=== PATIENT | male | born 1930 | race Caucasian/White ===

== ENCOUNTER 2018-10-29 09:04 | Emergency (ER) | payer MEDICARE, BC ==
[2018-10-29] MEDS ORDERED: NITROGLYCERIN OINT 1 INCH/GM PACKET TOPICAL STA (09:12)
[2018-10-29 09:16] VITALS: RESP 18; TEMP 98.4
--- NOTE | 2018-10-29 09:19 | ED ---
Chest Pain HPI - General Stated Complaint: Chest Pain, Weakness Time Seen by Provider: 10/29/18 09:04 Source: patient, RN notes reviewed - History of Present Illness Initial Comments: This 88-year-old male with no prior history of heart disease who states she's been having intermittent episodes of midsternal chest pain for about the last week his morning it came on in was more severe than usual last longer than usual. He states it was 7 and 8/10 severity retrosternal pressure-type discomfort. Nonradiating. No associated fevers chills nausea vomiting sweats. He was given 324 past or by paramedics states the pain is now down to about 1/10. No cough no trauma no fevers chills or sweats he denies any recent travel he does report that he is got back from [place] states he did not go his family did. MD Complaint: chest pain - Related Data Home Medications Medication Instructions Recorded Confirmed Atorvastatin [Lipitor] 10 mg PO DAILY 10/29/18 10/29/18 Cetirizine HCl [Zyrtec] 10 mg PO DAILY 10/29/18 10/29/18 HYDROcodone/APAP 7.5-325MG [[place] 1 tab PO BID 10/29/18 10/29/18 7.5-325] Lisinopril 20 mg PO DAILY 10/29/18 10/29/18 Allergies Allergy/AdvReac Type Severity Reaction Status Date / Time cephalexin [From Keflex] AdvReac Nausea & Verified 10/29/18 09:37 Vomiting Review of Systems ROS Statement: Those systems with pertinent positive or pertinent negative responses have been documented in the HPI. ROS Other: All systems not noted in ROS Statement are negative. EKG Findings - EKG Results: EKG: interpreted by ERMD, sinus rhythm (EKG shows sinus bradycardia first-degree AV block rate was 57. Interval to 10 QRS duration 94 QT since QTC 434/422) General Exam - General Exam Comments Initial Comments: This is a well-developed well-nourished awake alert oriented 3 male General appearance: alert, in no apparent distress Head exam: Present: atraumatic, normocephalic, normal inspection Eye exam: Present: normal appearance, PERRL, EOMI. Absent: scleral icterus, conjunctival injection, periorbital swelling ENT exam: Present: normal exam, mucous membranes moist Neck exam: Present: normal inspection, other (No stridor JVD or bruits). Absent: tenderness, meningismus, lymphadenopathy Respiratory exam: Present: normal lung sounds bilaterally. Absent: respiratory distress, wheezes, rales, rhonchi, stridor Cardiovascular Exam: Present: regular rate, normal rhythm, normal heart sounds. Absent: systolic murmur, diastolic murmur, rubs, gallop, clicks GI/Abdominal exam: Present: soft, normal bowel sounds. Absent: distended, tenderness, guarding, rebound, rigid Extremities exam: Present: normal inspection, full ROM, normal capillary refill. Absent: tenderness, pedal edema, joint swelling, calf tenderness Back exam: Present: normal inspection Neurological exam: Present: alert, oriented X3, CN II-XII intact Psychiatric exam: Present: normal affect, normal mood Skin exam: Present: warm, dry, intact, normal color, other (Multiple skin lesions consistent with keratoses). Absent: rash Course Vital Signs 10/29/18 10/29/18 09:10 12:15 Temperature 98.4 F Pulse Rate 61 75 Respiratory 18 18 Rate Blood Pressure 131/68 139/74 O2 Sat by Pulse 94 L 97 Oximetry Chest Pain MDM - MDM Imaging was reviewed no evidence on x-ray of acute findings CAT scan was done due to the elevated d-dimer there is evidence of a a setting aortic aneurysm no evidence of pulmonary emboli. The patient's demonstrate elevation of his pancreatic enzymes as well as liver enzymes of unknown etiology. The setting and presentation of chest pain or suspicious for ACS. I did a long discussion with patient family members were present. This was done on several different occasions patient is refusing admission at this time. I did explain in detail the risk of going home and benefits of further evaluation he understands and is refusing. Patient daughter is present and is unable to convince him to stay. Does agree to follow with Dr. Bass in 2 days. He is similar to back at any time. Critical Care Time Critical Care Time: Yes Critical Care Time: 31 minutes of critical care time which includes his presentation with history physical labs x-rays discussed with paramedics reevaluation the patient. Discussed with patient family and several occasions regarding the findings review of any charting that was available and documentation of the above Disposition Clinical Impression: Acute coronary syndrome, Unstable angina pectoris, Acute pancreatitis, Hepatitis Disposition: Left Against Medical Advice Condition: Serious Is patient prescribed a controlled substance at d/c from ED?: No Referrals: Burton Bass MD [Primary Care Provider] - 1-2 days
[2018-10-29 09:57] LABS: Basophils % (A) 0 %; Eosinophils # (A) 0.1 k/uL (0-0.7); Eosinophils % (A) 1 %; HCT 42.8 % (39.0-53.0); Lymphocytes # (A) 1.5 k/uL (1.0-4.8); Lymphocytes % (A) 9 %; MCH 33.6 pg (25.0-35.0); MCHC 32.8 g/dL (31.0-37.0); MCV 102.4 fL (80.0-100.0); Mean Platelet Volume 6.4; Monocytes # (A) 0.6 k/uL (0-1.0); Monocytes % (A) 4 %; Neutrophils # (A) 13.1 k/uL (1.3-7.7); Neutrophils % (A) 85 %; Platelet Count 329 k/uL (150-450); RBC 4.18 m/uL (4.30-5.90); RDW 12.3 % (11.5-15.5); WBC 15.3 k/uL (3.8-10.6)
--- NOTE | 2018-10-29 10:07 | XR ---
EXAMINATION TYPE: XR chest 2V DATE OF EXAM: 10/29/2018 COMPARISON: NONE HISTORY: Chest pain TECHNIQUE: Frontal and lateral views of the chest are obtained. FINDINGS: There is minimal left basilar subsegmental atelectasis. Pulmonary hyperinflation relates u nderlying emphysematous change. Cardia mediastinal is mildly enlarged. Osseous structures display dif fuse demineralization. IMPRESSION: Minimal left basilar subsegmental atelectasis and underlying emphysematous change.
[2018-10-29 10:21] LABS: ALT 227 U/L (21-72); AST 478 U/L (17-59); Albumin 3.8 g/dL (3.5-5.0); Alkaline Phosphatase 140 U/L (38-126); Amylase 101 U/L (30-110); Anion Gap 8 mmol/L; Blood Urea Nitrogen 20 mg/dL (9-20); Calcium 10.6 mg/dL (8.4-10.2); Carbon Dioxide 24 mmol/L (22-30); Chloride 108 mmol/L (98-107); Glucose 105 mg/dL (74-99); Lipase 1022 U/L (23-300); Potassium 4.7 mmol/L (3.5-5.1); Sodium 140 mmol/L (137-145); Total Bilirubin 0.9 mg/dL (0.2-1.3); Total Protein 6.4 g/dL (6.3-8.2)
[2018-10-29 10:26] LABS: Partial Thromboplastin Time 22.3 sec (22.0-30.0); Prothrombin Time 10.3 sec (9.0-12.0)
[2018-10-29 11:05] LABS: D-Dimer 0.73 mg/L FEU (<0.60)
[2018-10-29] MEDS ORDERED: fentaNYL (PF) 50 MCG/ML 2 ML AMP IV STA (11:36)
[2018-10-29 12:18] VITALS: BP 139/74; PULSE 75
--- NOTE | 2018-10-29 12:26 | CT ---
EXAMINATION TYPE: CT angio chest DATE OF EXAM: 10/29/2018 COMPARISON: NONE HISTORY: Chest pain CT DLP: 339.4 mGycm. Automated Exposure Control for Dose Reduction was Utilized. CONTRAST: CTA scan of the thorax is performed with IV Contrast, patient injected with 100 mL of Isovue 370, pul monary embolism protocol. MIP Images are created on CT scanner and reviewed. FINDINGS: LUNGS: Is a macroscopic fat-containing medial right upper lobe 1.4 cm nodule with dystrophic appearin g calcifications. 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 Right hemidiaphragm elevation is noted. Bibasilar opacities are seen. Within the right basilar opacity there are few are as of hypoattenuation that could represent pneumonia MEDIASTINUM: There is satisfactory enhancement of the pulmonary artery and its branches, there is no CT evidence for pulmonary embolism. There is enlargement of the right and left main pulmonary arteri es with the right measuring up to 3.3 cm suggesting underlying pulmonary arterial hypertension. Moder ate coronary artery calcifications are seen. Mild cardiomegaly is present There are no greater than 1 cm hilar or mediastinal lymph nodes. No cardiomegaly or pericardial effusion is seen. Ascending th oracic aorta is mildly enlarged measuring 4.2 cm. OTHER: Approximately 2.2 cm hepatic cyst is partially visualized as well as additional 2.0 cm left he patic lobe cyst. Right hemidiaphragm elevation is seen. Evaluation of the liver is suboptimal. Mild b ilateral symmetric retroareolar gynecomastia is noted. Diffuse osseous demineralization and mild mult ilevel degenerative changes of the spine are noted. IMPRESSION: 1. No evidence of pulmonary embolus. Bibasilar airspace disease is felt to represent components of sergo th atelectasis and pneumonia. 2. Ascending thoracic aortic aneurysm measuring up to 4.2 cm. 3. Enlargement main pulmonary arteries history of underlying pulmonary arterial hypertension. 4. Right upper lung pulmonary nodule appears benign relating to a hamartoma given macroscopic fat how ever confirmatory examination in 6 months to ensure stability.
--- NOTE | 2018-10-29 13:59 | ED ---
Medical Decision Making - Lab Data Result diagrams: 10/29/18 09:28 10/29/18 09:28 Lab Results 10/29/18 10/29/18 10/29/18 Range/Units 09:28 09:28 09:28 WBC 15.3 H (3.8-10.6) k/uL RBC 4.18 L (4.30-5.90) m/uL Hgb 14.0 (13.0-17.5) gm/dL Hct 42.8 (39.0-53.0) % MCV 102.4 H (80.0-100.0) fL MCH 33.6 (25.0-35.0) pg MCHC 32.8 (31.0-37.0) g/dL RDW 12.3 (11.5-15.5) % Plt Count 329 (150-450) k/uL Neutrophils % 85 % Lymphocytes % 9 % Monocytes % 4 % Eosinophils % 1 % Basophils % 0 % Neutrophils # 13.1 H (1.3-7.7) k/uL Lymphocytes # 1.5 (1.0-4.8) k/uL Monocytes # 0.6 (0-1.0) k/uL Eosinophils # 0.1 (0-0.7) k/uL Basophils # 0.0 (0-0.2) k/uL PT 10.3 (9.0-12.0) sec INR 1.0 (<1.2) APTT 22.3 (22.0-30.0) sec D-Dimer 0.73 H (<0.60) mg/L FEU Sodium 140 (137-145) mmol/L Potassium 4.7 (3.5-5.1) mmol/L Chloride 108 H (98-107) mmol/L Carbon Dioxide 24 (22-30) mmol/L Anion Gap 8 mmol/L BUN 20 (9-20) mg/dL Creatinine 0.70 (0.66-1.25) mg/dL Est GFR (CKD-EPI)AfAm >90 (>60 ml/min/1.73 sqM) Est GFR (CKD-EPI)NonAf 85 (>60 ml/min/1.73 sqM) Glucose 105 H (74-99) mg/dL Calcium 10.6 H (8.4-10.2) mg/dL Magnesium 2.0 (1.6-2.3) mg/dL Total Bilirubin 0.9 (0.2-1.3) mg/dL AST 478 H (17-59) U/L ALT 227 H (21-72) U/L Alkaline Phosphatase 140 H (38-126) U/L Troponin I (0.000-0.034) ng/mL NT-Pro-B Natriuret Pep pg/mL Total Protein 6.4 (6.3-8.2) g/dL Albumin 3.8 (3.5-5.0) g/dL Amylase 101 (30-110) U/L Lipase 1022 H (23-300) U/L 10/29/18 10/29/18 Range/Units 09:28 09:28 WBC (3.8-10.6) k/uL RBC (4.30-5.90) m/uL Hgb (13.0-17.5) gm/dL Hct (39.0-53.0) % MCV (80.0-100.0) fL MCH (25.0-35.0) pg MCHC (31.0-37.0) g/dL RDW (11.5-15.5) % Plt Count (150-450) k/uL Neutrophils % % Lymphocytes % % Monocytes % % Eosinophils % % Basophils % % Neutrophils # (1.3-7.7) k/uL Lymphocytes # (1.0-4.8) k/uL Monocytes # (0-1.0) k/uL Eosinophils # (0-0.7) k/uL Basophils # (0-0.2) k/uL PT (9.0-12.0) sec INR (<1.2) APTT (22.0-30.0) sec D-Dimer (<0.60) mg/L FEU Sodium (137-145) mmol/L Potassium (3.5-5.1) mmol/L Chloride (98-107) mmol/L Carbon Dioxide (22-30) mmol/L Anion Gap mmol/L BUN (9-20) mg/dL Creatinine (0.66-1.25) mg/dL Est GFR (CKD-EPI)AfAm (>60 ml/min/1.73 sqM) Est GFR (CKD-EPI)NonAf (>60 ml/min/1.73 sqM) Glucose (74-99) mg/dL Calcium (8.4-10.2) mg/dL Magnesium (1.6-2.3) mg/dL Total Bilirubin (0.2-1.3) mg/dL AST (17-59) U/L ALT (21-72) U/L Alkaline Phosphatase (38-126) U/L Troponin I <0.012 (0.000-0.034) ng/mL NT-Pro-B Natriuret Pep 109 pg/mL Total Protein (6.3-8.2) g/dL Albumin (3.5-5.0) g/dL Amylase (30-110) U/L Lipase (23-300) U/L Disposition Clinical Impression: Acute coronary syndrome, Unstable angina pectoris, Acute pancreatitis, Hepatitis Disposition: Left Against Medical Advice Condition: Serious Instructions (If sedation given, give patient instructions): Chest Pain (ED), Acute Coronary Syndrome (ED), Pancreatitis (ED) Is patient prescribed a controlled substance at d/c from ED?: No Referrals: Burton Bass MD [Primary Care Provider] - 1-2 days
== END 2018-10-29 13:52 | disposition left against medical advice (07) ==
LOC: EC 09:04
DX: I24.9 Acute ischemic heart disease, unspecified (principal); K85.90 Acute pancreatitis without necrosis or infection, unspecified; K75.9 Inflammatory liver disease, unspecified; I71.2 Thoracic aortic aneurysm, without rupture; Z79.899 Other long term (current) drug therapy; Z88.1 Allergy status to other antibiotic agents
CPT/HCPCS: 36415; 93005; 85379; 83880; 80053; 82150; 83690; 83735; 84484; 85025; 85610; 85730; 71046; 71275; 99291; Q9967

== ENCOUNTER 2018-12-14 12:02 | Emergency (ER) | payer MEDICARE, BC ==
[2018-12-14 12:14] VITALS: TEMP 98
--- NOTE | 2018-12-14 12:26 | ED ---
General Adult HPI - General Chief complaint: Fall Stated complaint: Syncope Time Seen by Provider: 12/14/18 12:05 Source: patient, RN notes reviewed Mode of arrival: EMS Limitations: no limitations - History of Present Illness Initial comments: This is an 88-year-old male who presents emergency Department complaining that he thought he locked his walker today but he did not and it removed on him and he fell onto his butt. Patient states he did not hit his head did not hit his neck. Patient denies any injury. Patient states he was told to come in to be checked out by the people he was with time. Patient states nothing bothersome at this time. Patient denies a headache patient denies any neck pain patient denies any numbness weakness. Patient denies any chest pain shortness of breath or difficulty breathing. Patient denies any back pain. Patient denies any tailbone pain. Patient denies any extremity pain. Patient states he can move a ll 4 extremities and full range of motion. - Related Data Home Medications Medication Instructions Recorded Confirmed Atorvastatin [Lipitor] 10 mg PO DAILY 10/29/18 12/14/18 Cetirizine HCl [Zyrtec] 10 mg PO DAILY 10/29/18 12/14/18 HYDROcodone/APAP 7.5-325MG [[place] 1 tab PO BID 10/29/18 12/14/18 7.5-325] Lisinopril 20 mg PO DAILY 10/29/18 12/14/18 ALPRAZolam [Xanax] 0.25 mg PO DAILY PRN 12/14/18 12/14/18 Isosorbide Mononitrate ER [Imdur] 60 mg PO DAILY 12/14/18 12/14/18 Lansoprazole [Prevacid] 30 mg PO DAILY 12/14/18 12/14/18 Tamsulosin HCl [Flomax] 0.4 mg PO DAILY 12/14/18 12/14/18 Verapamil HCl [Verapamil ER] 240 mg PO DAILY 12/14/18 12/14/18 Zolpidem Tartrate [Ambien] 10 mg PO HS PRN 12/14/18 12/14/18 Allergies Allergy/AdvReac Type Severity Reaction Status Date / Time cephalexin [From Keflex] AdvReac Nausea & Verified 12/14/18 12:26 Vomiting Review of Systems ROS Statement: Those systems with pertinent positive or pertinent negative responses have been documented in the HPI. ROS Other: All systems not noted in ROS Statement are negative. Past Medical History Past Medical History: Hyperlipidemia, Hypertension History of Any Multi-Drug Resistant Organisms: None Reported Past Surgical History: Back Surgery Past Psychological History: No Psychological Hx Reported Smoking Status: Never smoker Past Alcohol Use History: None Reported Past Drug Use History: None Reported General Exam - General Exam Comments Initial Comments: GENERAL: Patient is well-developed and well-nourished. Patient is nontoxic and well- hydrated and is in no acute distress. ENT: Neck is soft and supple. No significant lymphadenopathy is noted. Oropharynx is clear. Moist mucous membranes. Neck has full range of motion without eliciting any pain. EYES: The sclera were anicteric and conjunctiva were pink and moist. Extraocular movements were intact and pupils were equal round and reactive to light. Eyelids were unremarkable. PULMONARY: Unlabored respirations. Good breath sounds bilaterally. No audible rales rhonchi or wheezing was noted. CARDIOVASCULAR: There is a regular rate and rhythm without any murmurs gallops or rubs. ABDOMEN: Soft and nontender with normal bowel sounds. SKIN: Skin is clear with no lesions or rashes and otherwise unremarkable. NEUROLOGIC: Patient is alert and oriented x3. Cranial nerves II through XII are grossly intact. Motor and sensory are also intact. Normal speech, volume and content. Symmetrical smile. MUSCULOSKELETAL: Normal extremities with adequate strength and full range of motion. No lower extremity swelling or edema. No calf tenderness. I palpated the patient's back and he had no area of tenderness. LYMPHATICS: No significant lymphadenopathy is noted PSYCHIATRIC: Normal psychiatric evaluation. 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 Patient will be worked up for a syncopal episode and bradycardia EKG shows normal sinus rhythm at 74 bpm [place] interval 176 QRS is 94 QT interval 382 QTC is 424. Patient's EKG shows no ST segment elevation or depression or T wave abnormalities are noted. We finally talked to the actual nurse who witnessed the whole event and she indicated that the patient lost consciousness but was very near passing out and did not respond to her questions initially it took a while for him to start responding to her questions. She also indicated that his heart rate was in the 30s. When I spoke to the daughter about this she stated that there is nothing really to do about that because the patient himself would not want any intervention. At this point time we discussed staying versus going back to facility and the daughter was comfortable letting him go back to the facility and following up on his own. - Lab Data Result diagrams: 12/14/18 13:29 12/14/18 13:29 Lab Results 12/14/18 12/14/18 12/14/18 Range/Units 13:29 13:29 13:29 WBC 10.2 (3.8-10.6) k/uL RBC 4.20 L (4.30-5.90) m/uL Hgb 13.7 (13.0-17.5) gm/dL Hct 41.7 (39.0-53.0) % MCV 99.3 (80.0-100.0) fL MCH 32.6 (25.0-35.0) pg MCHC 32.8 (31.0-37.0) g/dL RDW 12.1 (11.5-15.5) % Plt Count 227 (150-450) k/uL Neutrophils % 83 % Lymphocytes % 11 % Monocytes % 4 % Eosinophils % 1 % Basophils % 0 % Neutrophils # 8.4 H (1.3-7.7) k/uL Lymphocytes # 1.1 (1.0-4.8) k/uL Monocytes # 0.4 (0-1.0) k/uL Eosinophils # 0.1 (0-0.7) k/uL Basophils # 0.0 (0-0.2) k/uL PT 10.0 (9.0-12.0) sec INR 0.9 (<1.2) APTT 23.0 (22.0-30.0) sec Sodium 141 (137-145) mmol/L Potassium 4.6 (3.5-5.1) mmol/L Chloride 106 (98-107) mmol/L Carbon Dioxide 27 (22-30) mmol/L Anion Gap 8 mmol/L BUN 16 (9-20) mg/dL Creatinine 0.79 (0.66-1.25) mg/dL Est GFR (CKD-EPI)AfAm >90 (>60 ml/min/1.73 sqM) Est GFR (CKD-EPI)NonAf 81 (>60 ml/min/1.73 sqM) Glucose 110 H (74-99) mg/dL Calcium 10.8 H (8.4-10.2) mg/dL Magnesium 1.9 (1.6-2.3) mg/dL Total Bilirubin 0.5 (0.2-1.3) mg/dL AST 20 (17-59) U/L ALT 26 (21-72) U/L Alkaline Phosphatase 102 (38-126) U/L Troponin I (0.000-0.034) ng/mL Total Protein 6.5 (6.3-8.2) g/dL Albumin 4.0 (3.5-5.0) g/dL 12/14/18 Range/Units 13:29 WBC (3.8-10.6) k/uL RBC (4.30-5.90) m/uL Hgb (13.0-17.5) gm/dL Hct (39.0-53.0) % MCV (80.0-100.0) fL MCH (25.0-35.0) pg MCHC (31.0-37.0) g/dL RDW (11.5-15.5) % Plt Count (150-450) k/uL Neutrophils % % Lymphocytes % % Monocytes % % Eosinophils % % Basophils % % Neutrophils # (1.3-7.7) k/uL Lymphocytes # (1.0-4.8) k/uL Monocytes # (0-1.0) k/uL Eosinophils # (0-0.7) k/uL Basophils # (0-0.2) k/uL PT (9.0-12.0) sec INR (<1.2) APTT (22.0-30.0) sec Sodium (137-145) mmol/L Potassium (3.5-5.1) mmol/L Chloride (98-107) mmol/L Carbon Dioxide (22-30) mmol/L Anion Gap mmol/L BUN (9-20) mg/dL Creatinine (0.66-1.25) mg/dL Est GFR (CKD-EPI)AfAm (>60 ml/min/1.73 sqM) Est GFR (CKD-EPI)NonAf (>60 ml/min/1.73 sqM) Glucose (74-99) mg/dL Calcium (8.4-10.2) mg/dL Magnesium (1.6-2.3) mg/dL Total Bilirubin (0.2-1.3) mg/dL AST (17-59) U/L ALT (21-72) U/L Alkaline Phosphatase (38-126) U/L Troponin I <0.012 (0.000-0.034) ng/mL Total Protein (6.3-8.2) g/dL Albumin (3.5-5.0) g/dL Disposition Clinical Impression: Pre-syncope Disposition: HOME SELF-CARE Condition: Good Instructions (If sedation given, give patient instructions): Near Syncope (ED) Is patient prescribed a controlled substance at d/c from ED?: No Referrals: Burton Bass MD [Primary Care Provider] - 1-2 days Time of Disposition: 12:26
[2018-12-14] MEDS ORDERED: SODIUM CHLORIDE 0.9% 500 ML 500 ML IV STA (13:00)
--- NOTE | 2018-12-14 13:52 | XR ---
EXAMINATION TYPE: XR chest 2V DATE OF EXAM: 12/14/2018 COMPARISON: 11/08/2018 HISTORY: Chest pain, syncope and hypertension TECHNIQUE: Frontal and lateral views of the chest are obtained. FINDINGS: There is a new retrocardiac opacity on the lateral view. The remainder the lungs are clear . There is right hemidiaphragm elevation as seen on the prior. Cardiomediastinal silhouette is within normal limits. No sizable pneumothorax or pleural effusion. No acute osseous pathology. IMPRESSION: New retrocardiac opacity may represent atelectasis or pneumonia in the appropriate clini zeenat setting.
[2018-12-14 13:54] LABS: ALT 26 U/L (21-72); AST 20 U/L (17-59); Alkaline Phosphatase 102 U/L (38-126); Anion Gap 8 mmol/L; Blood Urea Nitrogen 16 mg/dL (9-20); Calcium 10.8 mg/dL (8.4-10.2); Carbon Dioxide 27 mmol/L (22-30); Chloride 106 mmol/L (98-107); Glucose 110 mg/dL (74-99); Magnesium 1.9 mg/dL (1.6-2.3); Potassium 4.6 mmol/L (3.5-5.1); Sodium 141 mmol/L (137-145); Total Bilirubin 0.5 mg/dL (0.2-1.3); Total Protein 6.5 g/dL (6.3-8.2)
[2018-12-14 13:57] LABS: Basophils % (A) 0 %; Eosinophils # (A) 0.1 k/uL (0-0.7); Eosinophils % (A) 1 %; HCT 41.7 % (39.0-53.0); HGB 13.7 gm/dL (13.0-17.5); Lymphocytes # (A) 1.1 k/uL (1.0-4.8); Lymphocytes % (A) 11 %; MCH 32.6 pg (25.0-35.0); MCHC 32.8 g/dL (31.0-37.0); MCV 99.3 fL (80.0-100.0); Mean Platelet Volume 6.7; Monocytes # (A) 0.4 k/uL (0-1.0); Monocytes % (A) 4 %; Neutrophils # (A) 8.4 k/uL (1.3-7.7); Neutrophils % (A) 83 %; Platelet Count 227 k/uL (150-450); RDW 12.1 % (11.5-15.5); WBC 10.2 k/uL (3.8-10.6)
[2018-12-14 14:02] LABS: INR 0.9 (<1.2)
[2018-12-14 16:16] VITALS: BP 128/74; PULSE 80; RESP 19
== END 2018-12-14 16:18 | disposition home or self-care (01) ==
LOC: EC 12:02
DX: R55 Syncope and collapse (principal); E78.5 Hyperlipidemia, unspecified; I10 Essential (primary) hypertension; Z88.1 Allergy status to other antibiotic agents; Z79.891 Long term (current) use of opiate analgesic; Z79.899 Other long term (current) drug therapy; W19.XXXA Unspecified fall, initial encounter; Y93.89 Activity, other specified; Y92.009 Unspecified place in unspecified non-institutional (private) residence as the place of occurrence of the external cause
CPT/HCPCS: 36415; 71046; 80053; 83735; 84484; 85025; 85610; 85730; 93005; 99284

== ENCOUNTER 2019-07-02 11:10 | Emergency (ER) | payer MEDICARE, BC ==
[2019-07-02] MEDS ORDERED: SODIUM CHLORIDE 0.9% 500 ML 500 ML IV STA (11:22)
[2019-07-02 11:24] VITALS: TEMP 98.3
--- NOTE | 2019-07-02 12:03 | ED ---
General Adult HPI - General Chief complaint: Syncope Stated complaint: Unresponsive Time Seen by Provider: 07/02/19 11:15 Source: patient Mode of arrival: EMS Limitations: no limitations - History of Present Illness Initial comments: The patient is an 88-year-old male with past history of hyperlipidemia and hypertension who presents to the emergency department with reported syncopal episode. Patient was at [employer] when he had a syncopal episode that lasted 15 minutes. His children were at his side. Daughter stated that he had a look of "shear pain" on his face and then ended up slumping over. He was unresponsive for approximately 15 minutes. They state that they would scream his name and he would open his eyes and close them again. There was an AED in the [employer]. They placed on the patient and no shock was advised. A nurse was in [employer]. She had difficulty palpating a pulse. They laid the patient down and he became somewhat more responsive. EMS was called. They did have low blood pressure in the 80s systolic. The patient also had low oxygen saturations in the high 80s. They placed him on 2 L oxygen, obtained IV access and gave the patient a few cc of fluid. He presents to the emergency department alert and answering questions. He denies any recent illnesses. Denies feeling ill going to [employer]. Has had a good appetite. No chest pain or shortness of breath. Admits to a mild cough. No abdominal pain. Denies melanotic stools or hematochezia. There are no other alleviating, precipitating or modifying factors - Related Data Home Medications Medication Instructions Recorded Confirmed Atorvastatin [Lipitor] 10 mg PO DAILY@1700 10/29/18 07/02/19 Cetirizine HCl [Zyrtec] 10 mg PO DAILY@0810/29/18 07/02/19 Lisinopril 20 mg PO DAILY@0810/29/18 07/02/19 ALPRAZolam [Xanax] 0.25 mg PO BID@08,199912/14/18 07/02/19 Isosorbide Mononitrate ER [Imdur] 60 mg PO DAILY@0812/14/18 07/02/19 Lansoprazole [Prevacid] 30 mg PO BID@0800,17012/14/18 07/02/19 Tamsulosin HCl [Flomax] 0.4 mg PO DAILY@1700 12/14/18 07/02/19 C,E,Zinc,Copper 11/Bfmnv3b/Lut 1 tab PO DAILY@0800 07/02/19 07/02/19 [Ocuvite Adult 50 Plus Softgel] Furosemide [Lasix] 40 mg PO DAILY 07/02/19 07/02/19 Sucralfate [Carafate] 1 gm PO ACHS 07/02/19 07/02/19 Allergies Allergy/AdvReac Type Severity Reaction Status Date / Time cephalexin [From Keflex] AdvReac Nausea & Verified 07/02/19 11:52 Vomiting Review of Systems ROS Statement: Those systems with pertinent positive or pertinent negative responses have been documented in the HPI. ROS Other: All systems not noted in ROS Statement are negative. Past Medical History Past Medical History: Hyperlipidemia, Hypertension Additional Past Medical History / Comment(s): gall bladder issues History of Any Multi-Drug Resistant Organisms: None Reported Past Surgical History: Back Surgery Past Psychological History: No Psychological Hx Reported Smoking Status: Never smoker Past Alcohol Use History: None Reported Past Drug Use History: None Reported General Exam Limitations: no limitations General appearance: alert, in no apparent distress Head exam: Present: atraumatic, normocephalic, normal inspection Eye exam: Present: normal appearance, PERRL, EOMI. Absent: scleral icterus, conjunctival injection, periorbital swelling ENT exam: Present: normal exam, mucous membranes moist Neck exam: Present: normal inspection. Absent: tenderness, meningismus, lymphadenopathy Respiratory exam: Present: wheezes, rales, decreased breath sounds. Absent: respiratory distress, rhonchi, stridor, accessory muscle use Cardiovascular Exam: Present: regular rate, normal rhythm, normal heart sounds. Absent: systolic murmur, diastolic murmur, rubs, gallop, clicks GI/Abdominal exam: Present: soft, normal bowel sounds. Absent: distended, tenderness, guarding, rebound, rigid Extremities exam: Present: normal inspection, full ROM, normal capillary refill. Absent: tenderness, pedal edema, joint swelling, calf tenderness Back exam: Present: normal inspection Neurological exam: Present: alert, oriented X3, CN II-XII intact Psychiatric exam: Present: normal affect, normal mood Skin exam: Present: warm, dry, intact, normal color. Absent: rash Course Vital Signs 07/02/19 07/02/19 07/02/19 11:13 11:21 11:30 Temperature 98.3 F Pulse Rate 81 78 Respiratory 20 16 16 Rate Blood Pressure 108/60 108/60 108/60 O2 Sat by Pulse 98 90 L Oximetry 07/02/19 07/02/19 07/02/19 12:00 12:30 13:00 Temperature Pulse Rate 84 78 78 Respiratory 13 15 18 Rate Blood Pressure 112/60 104/70 113/69 O2 Sat by Pulse 94 L 97 97 Oximetry 07/02/19 07/02/19 13:30 13:46 Temperature Pulse Rate 79 82 Respiratory 18 Rate Blood Pressure 114/66 O2 Sat by Pulse 97 Oximetry EKG Findings - EKG Comments: EKG Findings:: EKG demonstrates sinus rhythm with occasional PVCs. Rate of 82. VT interval 120. QRS 94. QTC 462. No acute ST segment patient depressions concerning for ischemic changes. Medical Decision Making - Medical Decision Making Upon arrival the patient is placed into room 3. The patient is alert and oriented upon presentation. I recommended laboratory studies, chest x-ray and a CT of the patient's brain as he does have some confusion. Patient did agree to this. Laboratory studies demonstrated normal CBC. Coags are normal. Chemistries show a potassium of 5.3. Glucose is 102. First troponin is negativ e. TSH is 5.1, free T4 1. influenza A and B are negative. CT of the patient's brain demonstrates no acute cranial abnormality. Mild atrophy. Chronic white matter ischemic change. Chest x-ray demonstrates a small left pleural effusion with atelectatic change at the right lung base. A 12-lead EKG is performed which demonstrates normal sinus rhythm. I did discuss the diagnosis, differential and treatment options because the patient's syncopal episode, oxygen requiring needs and low blood pressure I did recommend hospital admission. Son and daughter are at bedside. Daughter is DPOA. Originally they did agree to hospitalization admission however the patient was very adamant in going home. He states that he is aware that he could possibly however he does not want to be resuscitated and is not interested in medical care. His is actively dying and wants to be home with her. I did inform him that there is a possibility that he could suffer cardiac arrest or become permanent disabled. The patient is aware and is okay with this. Family at bedside is also aware and stated that if the patient got any worse that they would pursue hospice care rather than hospitalization. I did ask them to follow-up with her primary care physician tomorrow. Return to the emergency room if they do wish to have further medical treatment. The patient was then discharged home with very guarded prognosis. I did discuss the case with Dr. Nichols - Lab Data Result diagrams: 07/02/19 11:24 07/02/19 11:24 Lab Results 07/02/19 07/02/19 07/02/19 Range/Units 11:24 11:24 11:24 WBC 9.3 (3.8-10.6) k/uL RBC 4.12 L (4.30-5.90) m/uL Hgb 13.0 (13.0-17.5) gm/dL Hct 39.0 (39.0-53.0) % MCV 94.7 (80.0-100.0) fL MCH 31.4 (25.0-35.0) pg MCHC 33.2 (31.0-37.0) g/dL RDW 13.1 (11.5-15.5) % Plt Count 185 (150-450) k/uL Neutrophils % 75 % Lymphocytes % 15 % Monocytes % 6 % Eosinophils % 2 % Basophils % 1 % Neutrophils # 6.9 (1.3-7.7) k/uL Lymphocytes # 1.4 (1.0-4.8) k/uL Monocytes # 0.6 (0-1.0) k/uL Eosinophils # 0.2 (0-0.7) k/uL Basophils # 0.1 (0-0.2) k/uL PT 10.3 (9.0-12.0) sec INR 1.0 (<1.2) APTT 24.2 (22.0-30.0) sec Sodium 138 (137-145) mmol/L Potassium 5.3 H (3.5-5.1) mmol/L Chloride 106 (98-107) mmol/L Carbon Dioxide 26 (22-30) mmol/L Anion Gap 6 mmol/L BUN 16 (9-20) mg/dL Creatinine 0.91 (0.66-1.25) mg/dL Est GFR (CKD-EPI)AfAm 87 (>60 ml/min/1.73 sqM) Est GFR (CKD-EPI)NonAf 76 (>60 ml/min/1.73 sqM) Glucose 102 H (74-99) mg/dL Calcium 9.9 (8.4-10.2) mg/dL Total Bilirubin 1.1 (0.2-1.3) mg/dL AST 35 (17-59) U/L ALT 9 L (21-72) U/L Alkaline Phosphatase 115 (38-126) U/L Troponin I (0.000-0.034) ng/mL Total Protein 6.5 (6.3-8.2) g/dL Albumin 3.5 (3.5-5.0) g/dL TSH 5.180 H (0.465-4.680) mIU/L Free T4 1.07 (0.78-2.19) ng/dL Influenza Type A RNA (Not Detectd) Influenza Type B (PCR) (Not Detectd) 07/02/19 07/02/19 Range/Units 11:24 11:24 WBC (3.8-10.6) k/uL RBC (4.30-5.90) m/uL Hgb (13.0-17.5) gm/dL Hct (39.0-53.0) % MCV (80.0-100.0) fL MCH (25.0-35.0) pg MCHC (31.0-37.0) g/dL RDW (11.5-15.5) % Plt Count (150-450) k/uL Neutrophils % % Lymphocytes % % Monocytes % % Eosinophils % % Basophils % % Neutrophils # (1.3-7.7) k/uL Lymphocytes # (1.0-4.8) k/uL Monocytes # (0-1.0) k/uL Eosinophils # (0-0.7) k/uL Basophils # (0-0.2) k/uL PT (9.0-12.0) sec INR (<1.2) APTT (22.0-30.0) sec Sodium (137-145) mmol/L Potassium (3.5-5.1) mmol/L Chloride (98-107) mmol/L Carbon Dioxide (22-30) mmol/L Anion Gap mmol/L BUN (9-20) mg/dL Creatinine (0.66-1.25) mg/dL Est GFR (CKD-EPI)AfAm (>60 ml/min/1.73 sqM) Est GFR (CKD-EPI)NonAf (>60 ml/min/1.73 sqM) Glucose (74-99) mg/dL Calcium (8.4-10.2) mg/dL Total Bilirubin (0.2-1.3) mg/dL AST (17-59) U/L ALT (21-72) U/L Alkaline Phosphatase (38-126) U/L Troponin I <0.012 (0.000-0.034) ng/mL Total Protein (6.3-8.2) g/dL Albumin (3.5-5.0) g/dL TSH (0.465-4.680) mIU/L Free T4 (0.78-2.19) ng/dL Influenza Type A RNA Not Detected (Not Detectd) Influenza Type B (PCR) Not Detected (Not Detectd) Disposition Clinical Impression: Syncope Disposition: HOME SELF-CARE Condition: Serious Instructions (If sedation given, give patient instructions): Syncope (ED) Additional Instructions: I highly recommended hospital admission. You need follow-up with primary care doctor in 2-4 days. Return to the emergency room if you agree hospital admission or have any new or worsening symptoms Is patient prescribed a controlled substance at d/c from ED?: No Referrals: Rachel Taylor MD [Primary Care Provider] - 1-2 days Time of Disposition: 13:44
--- NOTE | 2019-07-02 12:30 | XR ---
EXAMINATION TYPE: XR chest 2V DATE OF EXAM: 07/02/2019 HISTORY: syncope. REFERENCE: Previous study dated 12/14/2018. FINDINGS: There is chronic apparent elevation of the right hemidiaphragm. There is atelectatic change at the right lung base. The left lung is clear. Heart size upper limits of normal. I suspect a small left effusion. IMPRESSION: I CANNOT EXCLUDE A SMALL, LEFT EFFUSION.
[2019-07-02 12:34] LABS: Basophils # (A) 0.1 k/uL (0-0.2); Basophils % (A) 1 %; Eosinophils # (A) 0.2 k/uL (0-0.7); Eosinophils % (A) 2 %; Lymphocytes # (A) 1.4 k/uL (1.0-4.8); Lymphocytes % (A) 15 %; MCH 31.4 pg (25.0-35.0); MCHC 33.2 g/dL (31.0-37.0); MCV 94.7 fL (80.0-100.0); Mean Platelet Volume 6.6; Monocytes # (A) 0.6 k/uL (0-1.0); Monocytes % (A) 6 %; Neutrophils # (A) 6.9 k/uL (1.3-7.7); Neutrophils % (A) 75 %; Platelet Count 185 k/uL (150-450); RBC 4.12 m/uL (4.30-5.90); RDW 13.1 % (11.5-15.5); WBC 9.3 k/uL (3.8-10.6)
--- NOTE | 2019-07-02 12:43 | CT ---
EXAMINATION TYPE: CT brain wo con DATE OF EXAM: 07/02/2019 COMPARISON: NONE HISTORY: Confusion, Syncope CT DLP: 1099.4 mGycm Automated exposure control for dose reduction was used. FINDINGS: There are generalized changes of sulcal prominence and ventriculomegaly, compatible with atrophic sid nge. There is diffuse periventricular white matter lucency, compatible with small vessel ischemic sid nge. There is no acute focal lesion, mass effect or midline shift identified. I do not see evidence o f intracranial blood. Visualized portions of the paranasal sinuses and mastoids are clear. The bony calvarium is intact. IMPRESSION: 1. NO ACUTE INTRACRANIAL ABNORMALITY. 2. MILD ATROPHY. 3. CHRONIC WHITE MATTER ISCHEMIC CHANGE.
[2019-07-02 12:47] LABS: Albumin 3.5 g/dL (3.5-5.0); Calcium 9.9 mg/dL (8.4-10.2); Potassium 5.3 mmol/L (3.5-5.1); Total Bilirubin 1.1 mg/dL (0.2-1.3); Total Protein 6.5 g/dL (6.3-8.2)
[2019-07-02 12:49] LABS: Partial Thromboplastin Time 24.2 sec (22.0-30.0); Prothrombin Time 10.3 sec (9.0-12.0)
[2019-07-02 13:18] VITALS: RESP 18
[2019-07-02] MEDS ORDERED: IPRATROPIUM-ALBUTEROL 3 ML NEB INHALATION STA (13:23)
[2019-07-02 13:56] VITALS: PULSE 82
[2019-07-02 14:01] VITALS: BP 114/66
[2019-07-02 14:02] LABS: T4, Free (Free Thyroxine) 1.07 ng/dL (0.78-2.19)
== END 2019-07-02 14:17 | disposition home or self-care (01) ==
LOC: EC 11:10
DX: R55 Syncope and collapse (principal); R41.0 Disorientation, unspecified; J90 Pleural effusion, not elsewhere classified; I10 Essential (primary) hypertension; E78.5 Hyperlipidemia, unspecified; Z79.899 Other long term (current) drug therapy; Z88.1 Allergy status to other antibiotic agents
CPT/HCPCS: 36415; 70450; 71046; 80053; 84439; 84443; 84484; 85025; 85610; 85730; 87502; 93005; 94640; 99285